=== PATIENT | female | born 1980 | race Caucasian/White ===

== ENCOUNTER 2022-04-21 07:58 | Outpatient (CLI) | payer OTHER, SELFPAY ==
--- NOTE | 2022-04-21 08:15 | CRLHL7_ITS ---
For Patients: As a result of the Century Cures Act, medical imaging exams and procedure reports are released immediately into your electronic medical record. You may view this report before your referring provider. If you have questions, please contact your health care provider. CLINICAL HISTORY: FOLLOW UP OVARIAN CYSTS Comparison: Pelvic ultrasound 06/25/2021, 10/28/2021. MRI 07/08/2021 TECHNIQUE: 2D ballesteros scale and color Doppler images were acquired of the pelvis using a transvaginal approach. FINDINGS: There are 2 complex right ovarian cysts, both of which contain solid vascular mural nodules. First lesion: Cystic area measures 2.4 x 1.7 x 2.2 cm with a solid component measuring 1.0 x 0.9 x 0.7 cm. Associated calcifications are present. This complex cystic lesion appears similar. Second lesion: Cystic area measures 2.8 x 1.8 x 3.0 cm. Solid nodule measures 0.9 x 1.3 x 1.2 cm. This complex cystic lesion has increased in size and developed since 2020. There may be an additional solid hypoechoic lesion within the right ovary measuring 2.2 x 1.6 x 1.9 cm. Left ovary not well visualized due to its superior position. Endometrium measures 1.6 cm. Endometrium is heterogeneous with 2 hyperechoic nodules measuring 1.1 x 0.5 cm and 1.0 x 0.6 cm likely representing polyps. Uterus measures 8.5 x 4.3 x 5.0 cm. No uterine fibroid. Normal blood flow to the right ovary without torsion. IMPRESSION: There are 2 complex right ovarian cyst, both containing solid vascular nodules, concerning for benign or malignant pathology. Right oophorectomy should be considered. Endometrial polyps. Dictated by Ed Porter MD @ 04/21/2022 9:15:59 AM (Electronically Signed)
== END 2022-04-21 07:59 | disposition home or self-care (01) ==
LOC: US 07:59
PROVIDERS: Visit Provider Obstetrics & Gynecology
DX: N83.201 Unspecified ovarian cyst, right side (principal); N84.0 Polyp of corpus uteri
CPT/HCPCS: 76830; 93976

== ENCOUNTER 2022-04-21 10:00 | Outpatient (CLI) | payer OTHER, SELFPAY ==
[2022-04-22 10:48] LABS: Cancer Antigen 125 20 U/mL (<=38)
== END 2022-04-21 10:01 | disposition home or self-care (01) ==
PROVIDERS: Visit Provider Obstetrics & Gynecology
DX: D48.9 Neoplasm of uncertain behavior, unspecified (principal)
CPT/HCPCS: 36415; 86304

== ENCOUNTER 2022-05-18 08:20 | Outpatient (CLI) | payer OTHER, SELFPAY ==
[2022-05-18 13:36] LABS: Basophils Absolute Auto 0.04 K/uL (0.00-0.30); Basophils Percent Auto 0.5 % (0.0-3.0); Eosinophils Absolute Auto 0.22 K/uL (0.00-0.50); Hematocrit 42.7 % (33.0-51.0); Hemoglobin* 14.9 gm/dL (12.0-16.0); Immature Granulocytes Abs Auto 0.03 K/uL (0.00-0.30); Lymphocytes Percent Auto 19.6 % (20-44); Mean Corpuscular HGB Conc 35 gm/dL (32-36); Mean Corpuscular Hemoglobin 30 pg (26-34); Mean Corpuscular Volume 86 fL (80-100); Monocytes Percent Auto 7.1 % (0.0-11.0); Neutrophils Absolute Auto 5.17 K/uL (1.7-7.0); Neutrophils Percent Auto 69.4 % (42.0-72.0); Platelet Count* 167 K/uL (140-440); RDW Coefficient of Variation % 12.4 % (11.5-15.5); Red Blood Count 4.97 m/uL (4.00-5.20); White Blood Count* 7.45 K/uL (4.50-11.00)
[2022-05-18 14:14] LABS: Slide Review Reflex No
[2022-05-18 15:22] LABS: Chloride* 102 mmol/L (96-114); Sodium* 136 mmol/L (135-149)
[2022-05-18 15:23] LABS: Potassium* 4.4 mmol/L (3.6-5.1)
[2022-05-18 15:25] LABS: Cholesterol* 225 mg/dL (90-199); Creatinine* 0.7 mg/dL (0.5-1.5); Estimated Glomerular Filt Rate 111 ml/min
[2022-05-18 15:26] LABS: Blood Urea Nitrogen* 15 mg/dL (5-24); Calcium* 9.6 mg/dL (8.4-10.6); Carbon Dioxide* 23 mmol/L (20-32); Glucose* 104 mg/dL (60-115); HDL Cholesterol* 62 mg/dL (>=50); LDL Cholesterol Calculated 134 mg/dL (<100); Triglycerides* 145 mg/dL (40-149)
== END 2022-05-18 08:21 | disposition home or self-care (01) ==
PROVIDERS: Visit Provider Family Medicine
DX: Z01.818 Encounter for other preprocedural examination (principal); I10 Essential (primary) hypertension; Z13.6 Encounter for screening for cardiovascular disorders
CPT/HCPCS: 80048; 80061; 85025

== ENCOUNTER 2022-05-27 09:03 | Outpatient (CLI) | payer OTHER, SELFPAY ==
[2022-05-27 14:28] LABS: SARS PCR* Negative SARS-CoV-2 (Negative)
== END 2022-05-27 09:04 | disposition home or self-care (01) ==
LOC: FBOREF 09:04
PROVIDERS: Visit Provider Obstetrics & Gynecology
DX: Z11.52 Encounter for screening for COVID-19 (principal)
CPT/HCPCS: 87635

== ENCOUNTER 2022-05-28 07:14 | Day surgery (SDC) | payer OTHER, SELFPAY ==
[2022-05-28] VITALS (19 sets, daily range): BP systolic 93–124; BP diastolic 50–82; PULSE 62–91; RESP 14–20; TEMP 36.2–36.8; O2SAT 92–99; BMI 39.6
[2022-05-28] MEDS: SODIUM CHLORIDE 0.9 % (FLUSH) 10 ML SYRINGE IVF (08:06)
[2022-05-28] MEDS: LACTATED RINGERS 1000 ML 1,000 ML 100 ML IV (08:06)
[2022-05-28 08:22] LABS: Hemoglobin* 14.5 gm/dL (12.0-16.0)
[2022-05-28 08:26] LABS: Ur HCG Qualitative* Negative (Negative)
[2022-05-28] MEDS: BUPIVACAINE 0.25% 30 ML INJECTION (10:20)
[2022-05-28] MEDS: LIDOCAINE 1% MDV 20 ML INJECTION (11:10)
--- NOTE | 2022-05-28 11:41 | W.PM.GYNPROC ---
Procedure Note Date Seen: 05/28/22 Procedure Details: PREOPERATIVE DIAGNOSIS: Complex right ovarian cyst Menorrhagia with suspected endometrial polyp on recent pelvic ultrasound POSTOPERATIVE DIAGNOSIS: Right ovarian cyst Scarring of peritoneum of posterior cul-de-sac Normal endometrial cavity without intracavitary defects PROCEDURE: Laparoscopy with pelvic washings, right salpingo-oophorectomy, left salpingectomy, peritoneal biopsy Hysteroscopy with dilation and curettage SURGEON: Yvonne Rivers MD [employer] TRAINEE: Bekah Casanova MD ANESTHESIA: General IV FLUIDS: 1000 mL crystalloid URINE OUTPUT: Not measured EBL: 20 SALINE DEFICIT: Less than 580 mL FINDINGS: 1. Upon pelvic exam under anesthesia, the cervix and vagina were normal in appearance. Uterus was mobile and anteverted, of normal size and texture. There were no palpable adnexal masses. 2. Upon laparoscopy, survey of the upper abdomen revealed a normal appearance to the inferior edge of the liver. Bowels were grossly normal appearance. Survey of the pelvis revealed normal appearance to the uterus. Bilateral tubes were normal in appearance. Left ovary exhibited corpus luteum. Right ovary exhibited a multiloculated cyst approximately 4 cm in greatest dimension with some implants along the surface. The cul-de-sac showed diffuse lacy white scarring overlying the posterior uterus extending down to the bilateral uterosacral ligaments. Bladder reflection were normal in appearance. COMPLICATIONS: None PROCEDURE IN DETAIL: Patient was taken to the operating room with IV running. She was positioned in dorsal lithotomy position with her legs fully supported in Yellofin stirrups. General anesthesia was administered. She was prepped and draped in the usual sterile fashion. Bimanual exam was performed for the above-noted findings. Speculum was inserted. A single-toothed uterine manipulator was inserted through the cervix into the lower uterine segment, and affixed to the anterior cervical lip. Speculum was removed. Hernandez catheter was placed. Patient's legs were placed in neutral position. Attention was turned to patient's abdomen. The infraumbilical area was infiltrated with small amount of Marcaine. An infraumbilical incision was made with a scalpel and carried through to the underlying layer of fascia with a hemostat. The 5 mm Fios Kii trocar was assembled with laparoscope within, and insufflator attached. While tenting up the abdomen manually, the trocar was passed through the anterior abdominal wall into the peritoneal cavity. Trocar was removed. Pneumoperitoneum was achieved. Survey of abdomen and pelvis revealed the above-noted findings. Three additional port sites were created. The 1st was in the patient's left lower quadrant, just superior medial to the left ASIS. The 2nd was a hand's breath superior to and slightly medial to the 1st. The 3rd was in the patient's right lower quadrant, just superior medial to the right ASIS. Each was infiltrated with small amount of Marcaine prior to incision. A 5 mm incision was made at each site, making sure the large vessels were out of harm's way. A 10 mm Fios Kii port was inserted at the left lower quadrant port site, and 5 mm Fios Kii port was inserted at the other 2 sites, under direct visualization and without complication. The balloon on each of the 4 ports was inflated, holding each in place. Attention was 1st turned to the posterior uterus and uterosacral ligaments. Laparoscopic ludwig were used to perform small peritoneal biopsy adjacent to the origin of the left uterosacral ligament. This was sent to pathology. Next, attention was turned to the right tube and ovary. These were elevated away from the pelvic sidewall, and they infundibulopelvic ligament was cauterized and transected with the Thunderbeat device. Dissection was carried laterally to medially through the broad ligament, reaching uterine cornua, where the right tube and the right uterosacral ligament were cauterized and transected, freeing the right adnexa. These were placed in the cul-de-sac for later retrieval. The cyst was not ruptured. Next, attention was turned to the left tube, which was elevated away from the pelvic sidewall. This was divided from the right ovary with the Thunderbeat device, and the blood supply was also divided at this time. Dissection was carried laterally to medially, reaching the left cornua, where the tube was cauterized and transected. This was removed from the abdomen and sent to pathology. An Endo-Catch bag was inserted through the left lower quadrant port site. The bag was opened within the peritoneal cavity, and the right tube and ovary replaced inside of it. Bag was cinched down and brought to the anterior abdominal wall. The left lower quadrant port was removed and the bag was brought up through the port. The specimen was removed piecemeal and sent to pathology. Bag was then removed. The fascia of this port site was closed with a Gage-Malcolm device using 0 Vicryl. The pelvis was again observed and hemostasis was noted. All pedicles were hemostatic. The balloon tips of the remaining port sites were deflated. Pneumoperitoneum was released after all instruments were removed. The ports were removed. The skin of each port site was closed with a subcuticular stitch of 4 0 Vicryl. Surgical glue was applied above this. Attention was returned to patient's pelvis. The uterine manipulator was removed. The patient's legs were placed in lithotomy position. Speculum was inserted. Cervix visualized and grasped along the anterior lip with a single-tooth tenaculum. Paracervical block was performed for total of 10 mL of 1% lidocaine. The posterior right puncture site of the paracervical block blood profusely, and this was successfully addressed with a single stitch of 2-0 Vicryl. Cervix was serially dilated to accommodate the TRUCLEAR hysteroscope. This was assembled with saline inflow and outflow in place. The line was flushed of bubbles. The hysteroscope was advanced through the cervix into the endometrial cavity for the above noted findings. The tissue morcellator was then inserted through the operating channel. Window lock was performed. Under direct visualization, the endometrial cavity was circumferentially curetted with the tissue morcellator. The hysteroscope and morcellator were then removed from the uterus. Tenaculum was removed from the anterior lip of cervix. Again, there was abundant bleeding from the tenaculum site, which was successfully addressed with another stitch of 2-0 Vicryl. Hemostasis was noted. Speculum was removed. Catheter was removed. Patient tolerated procedure well. She was taken to recovery area in stable condition.
[2022-05-28] MEDS: fentaNYL 100 MCG/2 ML inj 50 MCG IVP ×2 (11:53→12:00)
--- NOTE | 2022-05-28 11:57 | W.ANESCHARGE ---
Anesthesia Charges Start Date/Time Anesthesia Start Date: 05/28/22 Anesthesia Start Time: 09:31 Stop Date/Time Anesthesia Stop Date: 05/28/22 Anesthesia Stop Time: 11:40 Summary Emergency: No
[2022-05-28] MEDS: HYDROmorphone 0.5 mg/0.5 ml inj IVP ×2 (12:04→12:20)
--- NOTE | 2022-05-28 12:39 | W.ANESCHARGE ---
Anesthesia Charges Start Date/Time Anesthesia Start Date: 05/28/22 Anesthesia Start Time: 09:31 Stop Date/Time Anesthesia Stop Date: 05/28/22 Anesthesia Stop Time: 11:40 Summary Emergency: No
[2022-05-28] MEDS: OXYCODONE 5 MG TABLET PO (13:25)
[2022-05-28] MEDS: KETOROLAC 30 MG/ML inj IVP (13:25)
== END 2022-05-28 15:00 | disposition home or self-care (01) ==
PROVIDERS: PCP Family Medicine; Visit Provider Obstetrics & Gynecology
PROC: 0UDB8ZZ Extraction of Endometrium, Via Natural or Artificial Opening Endoscopic (ICD-10-PCS; CPT 58558; principal; 2022-05-28 08:40)
DX: D27.0 Benign neoplasm of right ovary (principal); N92.0 Excessive and frequent menstruation with regular cycle; N83.8 Other noninflammatory disorders of ovary, fallopian tube and broad ligament
CPT/HCPCS: 58661; 58558; 49321; 36415; 81025; 85018; 851; 86850; 86900; 86901; 88305; 88307; A9270; J1100; J1170; J1885; J2250; J2405; J2704; J3010; J3490; J7120

== ENCOUNTER 2022-08-11 16:05 | Outpatient (CLI) | payer OTHER, SELFPAY ==
--- NOTE | 2022-08-11 16:15 | CRLHL7_ITS ---
For Patients: As a result of the Cures Act, medical imaging exams and procedure reports are released immediately into your electronic medical record. You may view this report before your referring provider. If you have questions, please contact your health care provider. SCREENING MAMMOGRAM WITH COMPUTER-AIDED DETECTION AND TOMOSYNTHESIS TECHNIQUE: CC and MLO views were obtained. These mammographic images have been obtained using full-field digital technique. These mammographic images were interpreted with the benefit of computer-aided detection. Breast Tomosynthesis was used in this interpretation. COMPARISON FILM: 07/28/2021. FINDINGS: There are scattered areas of fibroglandular density IMPRESSION: There is no radiographic evidence for malignancy. ASSESSMENT: BI-RADS Category 2: Benign RECOMMENDATION: Routine screening mammogram in 1 year. A lay language report of this examination will be provided to the patient. Ed Porter M.D. Diagnostic Radiologist [email or web address] Transcribed: 3:31 pm DW/Dictated by: Ed Porter MD @ 08/12/2022 8:57:00 AM DW/Dictated by: Ed Porter MD @ 08/12/2022 8:57:00 AM (Electronically Signed)
== END 2022-08-11 16:06 | disposition home or self-care (01) ==
LOC: MAMMO 16:06
PROVIDERS: PCP Family Medicine; Visit Provider Obstetrics & Gynecology
DX: Z12.31 Encounter for screening mammogram for malignant neoplasm of breast (principal)
CPT/HCPCS: 77063; 77067

== ENCOUNTER 2023-06-10 09:10 | Outpatient (CLI) | payer BC, SELFPAY | END 2023-06-10 09:11 | disposition home or self-care (01) | PROVIDERS: PCP Family Medicine; Visit Provider Physician Assistant | DX: Z01.419 Encounter for gynecological examination (general) (routine) without abnormal findings (principal); I10 Essential (primary) hypertension; Z13.6 Encounter for screening for cardiovascular disorders; Z13.29 Encounter for screening for other suspected endocrine disorder | CPT/HCPCS: 80048; 80061; 84443 ==

== ENCOUNTER 2023-08-27 13:23 | Outpatient (CLI) | payer BC, SELFPAY ==
--- NOTE | 2023-08-27 13:40 | CRLHL7_ITS ---
For Patients: As a result of the Century Cures Act, medical imaging exams and procedure reports are released immediately into your electronic medical record. You may view this report before your referring provider. If you have questions, please contact your health care provider. BILATERAL SCREENING MAMMOGRAM WITH COMPUTER-AIDED DETECTION AND TOMOSYNTHESIS TECHNIQUE: CC and MLO views were obtained. These mammographic images have been obtained using full-field digital technique. These mammographic images were interpreted with the benefit of computer-aided detection. Breast Tomosynthesis was used in this interpretation. COMPARISON FILM: 08/11/22, 07/28/21. FINDINGS: There are scattered areas of fibroglandular density IMPRESSION: There is no radiographic evidence for malignancy. ASSESSMENT: BI-RADS Category 2: Benign RECOMMENDATION: Routine screening mammogram in 1 year. A lay language report of this examination will be provided to the patient. Ed Porter M.D. Diagnostic Radiologist [email or web address] EDWIGE/Dictated by: Ed Porter MD @ 08/31/2023 9:08:00 AM (Electronically Signed)
== END 2023-08-27 13:24 | disposition home or self-care (01) ==
LOC: MAMMO 13:23
PROVIDERS: PCP Family Medicine; Visit Provider Family Medicine
DX: Z12.31 Encounter for screening mammogram for malignant neoplasm of breast (principal)
CPT/HCPCS: 77063; 77067

== ENCOUNTER 2024-09-05 12:49 | Outpatient (CLI) | payer BC, SELFPAY ==
--- NOTE | 2024-09-05 13:00 | CRLHL7_ITS ---
For Patients: As a result of the Cures Act, medical imaging exams and procedure reports are released immediately into your electronic medical record. You may view this report before your referring provider. If you have questions, please contact your health care provider. BILATERAL SCREENING MAMMOGRAM WITH COMPUTER-AIDED DETECTION AND TOMOSYNTHESIS TECHNIQUE: CC and MLO views were obtained. These mammographic images have been obtained using full-field digital technique. These mammographic images were interpreted with the benefit of computer-aided detection. Breast tomosynthesis was used in this interpretation. COMPARISON FILM: 08/27/23, 08/11/22, 07/28/21. FINDINGS: There are scattered areas of fibroglandular density. IMPRESSION: There is no radiographic evidence for malignancy. ASSESSMENT: BI-RADS Category 1: Negative RECOMMENDATION: Routine screening mammogram in 1 year. A lay language report of this examination will be provided to the patient. ED DAVIS M.D. Diagnostic Radiologist [email or web address] [email or web address]/[email or web address] Transcribed: 09/07/2024, 2:[address]/Dictated by: Ed Davis MD @ 09/07/2024 8:20:00 AM (Electronically Signed)
== END 2024-09-05 12:50 | disposition home or self-care (01) ==
LOC: MAMMO 12:49
PROVIDERS: PCP Family Medicine; Visit Provider Family Medicine
DX: Z12.31 Encounter for screening mammogram for malignant neoplasm of breast (principal)
CPT/HCPCS: 77063; 77067

== ENCOUNTER 2024-09-19 08:10 | Outpatient (CLI) | payer BC, SELFPAY | END 2024-09-19 08:11 | disposition home or self-care (01) | PROVIDERS: PCP Family Medicine; Visit Provider Family Medicine | DX: I10 Essential (primary) hypertension (principal); Z13.220 Encounter for screening for lipoid disorders | CPT/HCPCS: 80048; 80061; 85025 ==